=== PATIENT | female | born 1990 | race Caucasian/White ===

== ENCOUNTER 2020-12-03 07:34 | Inpatient (IN) ==
[2020-12-03] MEDS ORDERED: OXYTOCIN 30 UNITS/500 ML BAG IV PRN ×2 (08:33→18:29)
[2020-12-03 08:56] LABS: Hematocrit (blood only) 37.2 % (37-47); Hemoglobin 12.5 g/dL (12.0-16.0); Mean Corpuscular Hemoglobin 28.7 pg (25-34); Mean Corpuscular Hgb Conc 33.6 g/dL (32-36); Mean Corpuscular Volume 85.5 fL (80-100); Mean Platelet Volume 9.9 fL (7.4-10.4); Platelet Count 235 K/uL (130-400); RDW Coefficient of Variation 14.3 % (11.5-14.5); RDW Standard Deviation 44.2 fL (36.4-46.3); Red Blood Count 4.35 M/uL (4.2-5.4); White Blood Count 16.53 K/uL (4.8-10.8)
[2020-12-03] MEDS: OXYTOCIN 30 UNITS/500 ML BAG IV PRN ×2 (09:26→17:53)
[2020-12-03] MEDS: LACTATED RINGER'S 1,000 ML IV PRN ×2 (09:27→12:18)
--- NOTE | 2020-12-03 10:02 | History & Physical Report ---
Date of Service December 03, 2020 Assessment & Plan (1) Supervision of normal first : 30yo at 40.0 weeks GA. IOL 1. Fetus: Cat 1 2. Labor: Oxytocin. Will AROM when able 3. GBS negative 4. Vitals: WNL. Admission and Anticipated Discharge Date Admission Date: December 03, 2020 History of Present Illness Primary Care Provider: NO PCP 30yo G1 at 40.0 weeks GA. Presents for IOL. complicated by low fraction panoramax2 with NIPS showing low risk result. Allergies Allergy/AdvReac Type Severity Reaction Status Date / Time No Known Allergies Allergy Verified 12/02/20 08:28 Home Medications Medication Instructions Recorded Confirmed Type cetirizine 10 mg capsule 10 mg PO DAILY PRN cap 04/17/20 12/03/20 History prenat.vits,cameron,cwd-[id number]-[id number] 1 tab PO DAILY 04/17/20 12/03/20 History Breast pump #1 ea 08/16/20 12/02/20 Rx cholecalciferol (vitamin D3) PO DAILY 10/03/20 12/02/20 History ferrous sulfate PO DAILY 10/03/20 12/02/20 History Patient History Medical History Varicella vaccination Surgical History S/P tonsillectomy S/P wisdom tooth extraction Family History (Updated 04/17/20 @ 11:25 by Melissa Schaeffer) Aunt Colorectal cancer Mother Gestational diabetes Sister Gestational diabetes Denies family history of Ovarian cancer Breast cancer Social History (Updated 04/17/20 @ 11:07 by Melissa Schaeffer) Smoking Status: Never smoker Hx Alcohol Use: No Hx Substance Use: No Preferred Language: [place]ian Communication Ability: Effective Fireworks Inspector Required: No Beliefs That Will Affect Care: None marital status: marital status details: Dean James (35) [phone] Current Living Situation: Spouse Current Living Situation Comment: lives with spouse, no pets current occupational status: 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 Other Information That Helps Us Care for You: No Feels Safe at Home: Yes Safety Concerns: Feels Safe At This Time Assistive Devices: None Physical Exam 2 Constitutional: WD/WN, vitals as above Gastrointestinal (Abdomen): Inspection/Auscultation: abdomen not distended Percussion/Palpation: abdomen soft; abdomen nontender, no guarding and abdomen not rigid Psychiatric: A+Ox3, euthymic affect Genitourinary: normal external appearance OB Exam Abdomen: + vertex Manual OB Exam: + cervical dilation 6 cm, + cervical effacement 90% and + station -1 OB Exam Monitor Tracing: + external FHT monitor used, + external uterine monitor used, + category I and + normal FHT variability; no early de celerations present, no late decelerations present and no variable decelerations Results & Data ([facility]) Vital Signs (Past 12 Hours) Vital Signs Temp Pulse Resp BP 12/03/20 09:27 87 115/74 12/03/20 08:30 20 12/03/20 08:00 20 12/03/20 07:55 36.9 C 18 12/03/20 07:41 111 H 123/78 Coding Level of Care Code None Diagnoses Supervision of normal first Z34.00
[2020-12-03] MEDS ORDERED: ePHEDrine sulfate 50 MG/ML AMP ONE (11:41)
[2020-12-03] MEDS ORDERED: SODIUM CHLORIDE 0.9% INJ 10 ML VIAL ONE (11:41)
[2020-12-03] MEDS ORDERED: BUPIVACAINE 0.25% 30 ML VIAL ONE (11:41)
[2020-12-03] MEDS ORDERED: fentaNYL 2MCG/ML ROPIVACAINE 1.25MG/ML 100 ML BAG EPI ONE (11:42)
[2020-12-03] MEDS ORDERED: fentaNYL citrate 100 MCG/2 ML VIAL ONE (11:42)
[2020-12-03] MEDS ORDERED: NALOXONE HCL 1 MG in SODIUM CHLORIDE 0.9% 1000ML 1,000 ML IV PRN (12:24)
[2020-12-03] MEDS ORDERED: NALOXONE HCL 0.4 MG/1 ML VIAL/CARP IV PRN (12:24)
[2020-12-03] MEDS ORDERED: fentaNYL 2MCG/ML ROPIVACAINE 1.25MG/ML 100 ML BAG EPI PRN (12:24)
[2020-12-03] MEDS ORDERED: diphenhydrAMINE 50 MG/ML VIAL IV PRN (12:24)
[2020-12-03] MEDS ORDERED: ePHEDrine sulfate 50 MG/ML AMP IV PRN (12:24)
[2020-12-03] MEDS ORDERED: ONDANSETRON INJ 2 MG/ML 2 ML VIAL IV PRN (12:24)
--- NOTE | 2020-12-03 12:31 | Anesthesiology Consultation ---
Date of Service December 03, 2020 Assessment & Plan (1) Encounter for pre-operative examination: Chart Review Chart Review: Acceptable Risk for Labor Epidural Consults Requested none ASA ASA2 Proposed Anesthesia Anesthesia Type: Labor Epidural Risk / Benefits Reviewed With: PT / POA / Parent / Guardian, Accepts Plan and Informed Consent Obtained History Height/Weight Height: 5 ft 11 in Weight: 119.295 kg Allergies Allergy/AdvReac Type Severity Reaction Status Date / Time No Known Allergies Allergy Verified 12/02/20 08:28 Medications Home Medications Medication Instructions Recorded Confirmed Last Taken cetirizine 10 mg capsule 10 mg PO DAILY PRN cap 04/17/20 12/03/20 12/02/20 prenat.vits,cameron,[id number] 1 tab PO DAILY 04/17/20 12/03/20 12/02/20 Breast pump #1 ea 08/16/20 12/02/20 Unknown cholecalciferol (vitamin D3) PO DAILY 10/03/20 12/02/20 12/02/20 ferrous sulfate PO DAILY 10/03/20 12/02/20 12/02/20 Active Medications Generic Name Dose Route Start Last Admin Trade Name Freq PRN Reason Stop Dose Admin Oxytocin 30 units in 500 mls @ 6 mls/hr 12/03/20 08:33 12/03/20 11:15 Pitocin IV 12/05/20 08:32 0.36 units/hr .Q24H PRN 6 mls/hr Labor Induction/Augmentation Titration Protocol 0.36 UNITS/HR Lactated Ringer's 1,000 mls @ 125 mls/hr 12/03/20 08:33 12/03/20 12:18 Lr IV 12/05/20 08:32 999 mls/hr .Q8H PRN Administration L&D Protocol Protocol Past Medical History Medical History Varicella vaccination Exercise / Class Metabolic Activity II 4-5 Yardwork/Stairs/Walk up hill Past Family History Family History Aunt Colorectal cancer Mother Gestational diabetes Sister Gestational diabetes Denies family history of Ovarian cancer Breast cancer Past Surgical History Surgical History S/P tonsillectomy S/P wisdom tooth extraction Past Anesthesia History No Hx of Anesthesia Complications and No Family Hx of Anesthesia Complications History of PONV No Hx of PONV and No Hx of Motion Sickness Social History Smoking Status: Never smoker Hx Alcohol Use: No Hx Substance Use: No substance use type: does not use Physical Exam Vital Signs Last Vital Signs Temp 98.4 F 12/03/20 11:30 Pulse 91 H 12/03/20 12:26 Resp 20 12/03/20 12:00 BP 132/79 12/03/20 11:14 Pulse Ox 100 12/03/20 12:26 ENMT Mouth: no dentition abnormality Thyromental Distance: > or= 3.5 Finger Breadths Mallampati Class: II Neck normal visual inspection Respiratory normal respiratory effort Auscultation: lungs clear to auscultation bilaterally Cardiovascular Rate/Rhythm: regular rate and regular rhythm Testing Laboratory Results 12/03/20 08:40
--- NOTE | 2020-12-03 13:33 | Labor Progress Brief Note ---
Date of Service December 03, 2020 Subjective Reason For Note: Routine Evaluation Assessment & Plan (1) Supervision of normal first : 30yo at 40.0 weeks GA. IOL 1. Fetus: Cat 1 2. Labor: Oxytocin. AROM clr 3. GBS negative 4. Vitals: WNL. Admission and Anticipated Discharge Date Admission Date: December 03, 2020 Physical Exam Constitutional: WD/WN, vitals as above Genitourinary: OB Exam Abdomen: + vertex Manual OB Exam: + cervical dilation 6 cm, + cervical effacement 90%, + station -1 and + amniotic fluid clear OB Exam Monitor Tracing: + external FHT monitor used, + external uterine monitor used, + category I and + normal FHT variability; no early decelerations present, no late decelerations present and no variable decelerations Results & Data ([facility]) Vital Signs (Past 12 Hours) Vital Signs Temp Pulse Resp BP Pulse Ox 12/03/20 13:30 88 115/58 L 12/03/20 13:28 82 102/59 L 12/03/20 13:26 102 H 98 12/03/20 13:25 98 H 131/85 12/03/20 13:21 87 96 12/03/20 13:20 93 H 120/74 12/03/20 13:18 88 129/81 12/03/20 13:16 108 H 128/71 98 12/03/20 13:14 92 H 128/74 12/03/20 13:12 90 124/74 12/03/20 13:11 94 H 98 12/03/20 13:10 104 H 122/70 12/03/20 13:08 111 H 128/74 12/03/20 13:06 99 H 127/78 97 12/03/20 13:04 101 H 121/70 12/03/20 13:02 100 H 131/67 12/03/20 13:01 103 H 98 12/03/20 13:00 107 H 145/84 H 12/03/20 12:58 103 H 125/81 12/03/20 12:56 97 H 135/90 98 12/03/20 12:54 100 H 135/88 12/03/20 12:51 103 H 98 12/03/20 12:46 113 H 96 12/03/20 12:41 103 H 97 12/03/20 12:36 100 H 98 12/03/20 12:31 104 H 100 12/03/20 12:30 94 H 135/90 12/03/20 12:26 91 H 100 12/03/20 12:00 20 12/03/20 11:30 36.9 C 20 12/03/20 11:14 85 132/79 12/03/20 11:00 20 12/03/20 10:31 88 118/73 12/03/20 10:30 18 12/03/20 10:00 20 12/03/20 09:30 20 12/03/20 09:27 87 115/74 12/03/20 08:30 20 12/03/20 08:00 20 12/03/20 07:55 36.9 C 18 12/03/20 07:41 111 H 123/78 Coding Level of Care Code None Diagnoses Supervision of normal first Z34.00
[2020-12-03] MEDS ORDERED: METHYLERGONOVINE MALEATE 0.2 MG/ML AMP ONE (17:33)
[2020-12-03] MEDS ORDERED: miSOPROStoL 100 MCG TAB ONE (17:34)
[2020-12-03] MEDS ORDERED: LIDOCAINE HCL 1% 20 ML VIAL ONE (17:41)
[2020-12-03] MEDS ORDERED: SUPERCREAM 0.870% 15 GM JAR EXT PRN (18:29)
[2020-12-03] MEDS ORDERED: BENZOCAINE 20% AER SPR 82.5 GM CAN EXT PRN (18:29)
[2020-12-03] MEDS ORDERED: HYDROCORTISONE ACETATE 25 MG SUPP PR PRN (18:29)
[2020-12-03] MEDS ORDERED: bisacodyL 10 MG SUPP PR PRN (18:29)
[2020-12-03] MEDS ORDERED: DIPHTHERIA/TETANUS/PERTUSSIS 0.5 ML SYR/VIAL IM ONE (18:29)
--- NOTE | 2020-12-03 20:33 | Anesthesia Procedure Note ---
Date of Service December 03, 2020 Anesthesia Post Epidural Note Vital Signs Vital Signs: Temp Pulse Resp BP Pulse Ox 97.7 F 98 H 18 114/58 L 99 12/03/20 18:13 12/03/20 19:58 12/03/20 19:58 12/03/20 19:58 12/03/20 18:16 Pain Intensity Bilateral Lower Abdomen: Pain Intensity: 3 Notes Mental Status: alert / awake / arousable and participated in evaluation Nausea / Vomiting: adequately controlled Pain: adequately controlled Airway Patency, RR, SpO2: stable & adequate BP & HR: stable & adequate Hydration State: stable & adequate Neuraxial Anesthesia: was administered and sensory block is resolving Anesthetic Complications: no major complications apparent and Pt Satisfied with anesthetic care Epidural: Removed without complications and With tip intact
[2020-12-03] MEDS: DOCUSATE SODIUM 100 MG CAP PO SCH (20:56)
[2020-12-03] MEDS: ACETAMINOPHEN 325 MG TAB PO PRN (20:56)
--- NOTE | 2020-12-03 22:11 | Delivery Summary ---
DATE OF OPERATION: 12/03/2020 PROCEDURE: Normal spontaneous vaginal delivery with second-degree perineal laceration repair and bilateral sulcal laceration repairs. SURGEON: Linwood Rogers MD. PREOPERATIVE DIAGNOSES: 1. Single intrauterine at term. 2. Induction of labor. POSTOPERATIVE DIAGNOSES: Status post procedure: 1. Single intrauterine at term. 2. Induction of labor. ESTIMATED BLOOD LOSS: 500 mL. DRAINS: Straight cath at the completion of the case of 700 mL. URINE OUTPUT: Per straight catheterization. COMPLICATIONS: None. FINDINGS: Viable male with weight 8 pounds 11 ounces and Apgars of 8 and 9 at 1 and 5 minutes respectively. DESCRIPTION OF PROCEDURE: The patient progressed to 10 cm dilated, 100% effaced, +2 station, pushed over intact perineum with epidural anesthesia and delivered a viable male infant, weight and Apgars as noted above. Head of the delivered in MAHENDRA position, rest in left transverse. No nuchal cord was noted. Body and shoulders quickly followed. was delivered to maternal abdomen and was noted to be vigorous soon after delivery. A 1-minute delayed cord clamping was initiated for which the cord was double clamped and cut and remained on maternal abdomen. Cord blood was then obtained. Attention was then turned to deliver of the placenta, delivered intact, 3-vessel cord, gentle cord traction. On inspection of perineum, vagina, and cervix, there was noted to be second-degree perineal laceration and bilateral sulcal lacerations. The sulcal lacerations were repaired with 3-0 Vicryl in continuous running locked stitch. The perineal laceration was repaired with 3-0 Vicryl in a traditional crown stitch. Needle, sponge and instrument counts were correct at the completion of the case with mother and stable in the immediate post-delivery period. I attest to the content of the Intraoperative Record and any orders documented therein. Any exception s are noted below.
[2020-12-03] MEDS: IBUPROFEN 600 MG TAB PO PRN (22:30)
[2020-12-04] MEDS: IBUPROFEN 600 MG TAB PO PRN ×4 (02:09→16:39)
[2020-12-04] MEDS: ACETAMINOPHEN 325 MG TAB PO PRN ×3 (04:33→19:55)
[2020-12-04 06:28] LABS: Hematocrit (blood only) 30.2 % (37-47); Hemoglobin 10.3 g/dL (12.0-16.0); Mean Corpuscular Hemoglobin 28.9 pg (25-34); Mean Corpuscular Hgb Conc 34.1 g/dL (32-36); Mean Corpuscular Volume 84.8 fL (80-100); Mean Platelet Volume 9.8 fL (7.4-10.4); Platelet Count 211 K/uL (130-400); RDW Coefficient of Variation 14.3 % (11.5-14.5); RDW Standard Deviation 44.2 fL (36.4-46.3); Red Blood Count 3.56 M/uL (4.2-5.4); White Blood Count 18.69 K/uL (4.8-10.8)
--- NOTE | 2020-12-04 07:20 | Obstetrical Progress Note ---
Date of Service <Emilio Leslie MD - Last Filed: 12/04/20 07:20> December 04, 2020 Assessment & Plan <Emilio Leslie MD - Last Filed: 12/04/20 07:20> (1) abnormality affecting management of mother, antepartum: A/P: Jeri Ramirez is a 30yo female on PPD#1 following at 40wga. * Patient feels well today; eating well, voiding well, ambulating well * Pain well-controlled with ibuprofen 600mg q6h prn and tylenol 600mg q6h prn * PNL: Rh pos, RI, GBS neg, COVID neg * Routine care: OOB, ambulation, diet progression as tolerated * After discharge, will have six-week follow-up with Dr. Rogers Subjective <Emilio Leslie MD - Last Filed: 12/04/20 07:20> Jeri Ramirez is a 30yo female on PPD#1 following at 40wga. This morning, patient feels well overall. Reports mild, crampy abdominal pain well-managed on analgesics.Tolerating PO intake without nausea or vomiting. Patient has been able to ambulate without lightheadedness or dizziness. Voiding well without difficulty. Lochia is gradually improving over time. Patient is . Review of Systems Denies fever, chills, CP, SOB, cough, breast pain, dysuria, leg pain, leg swelling, headache, and changes in vision. Physical Exam <Emilio Leslie MD - Last Filed: 12/04/20 07:20> General: alert, oriented, no acute distress Cardiac: regular rate and rhythm, no murmur appreciated Respiratory: lungs clear to auscultation bilaterally a/p, no wheezes/rales/rhonchi, no increased work of breathing, symmetrical chest rise, no respiratory distress Abd: normal gravid abdomen, soft, minimally tender, BS present : uterine fundus firm, palpable 2-3 cm below umbilicus LE: no lower extremity edema bilaterally; no deep calf pain, Alvarez's negative bilaterally Results & Data ([facility]) <Emilio Leslie MD - Last Filed: 12/04/20 07:20> Vital Signs (Past 12 Hours) Vital Signs Temp Pulse Pulse Resp BP BP 12/04/20 04:40 36.5 C 80 18 117/75 12/04/20 00:30 36.6 C 99 H 18 106/62 12/03/20 22:00 106 H 111/72 12/03/20 20:45 37.3 C 125 H 18 109/72 12/03/20 19:58 98 H 18 114/58 L 12/03/20 19:44 106 H 129/78 12/03/20 19:28 95 H 18 119/78 <Linwood Rogers MD - Last Filed: 12/05/20 08:26> Co-Signing Physician Notes Patient seen and evaluated and agree with the above findings and plan. Routine OB care. Resident Activity Tracking <Emilio Leslie MD - Last Filed: 12/04/20 07:20> Resident Involvement: Resident Care Provided Care Provided: OB Delivery
[2020-12-04] MEDS: FERROUS SULFATE 325 MG TAB PO SCH (08:41)
[2020-12-04] MEDS: DOCUSATE SODIUM 100 MG CAP PO SCH ×2 (08:41→19:55)
[2020-12-04] MEDS: PRENATAL VITAMIN 1 TAB PO SCH (08:41)
[2020-12-04] MEDS ORDERED: bisacodyL 5 MG TABEC PO SCH (20:00)
[2020-12-05] MEDS: IBUPROFEN 600 MG TAB PO PRN ×3 (00:11→09:25)
[2020-12-05 06:23] LABS: Hematocrit (blood only) 29.2 % (37-47); Hemoglobin 9.8 g/dL (12.0-16.0)
--- NOTE | 2020-12-05 06:51 | Obstetrical Progress Note ---
Date of Service <Emilio Leslie MD - Last Filed: 12/05/20 06:50> December 05, 2020 Assessment & Plan <Emilio Leslie MD - Last Filed: 12/05/20 06:50> (1) abnormality affecting management of mother, antepartum: A/P: Jeri Ramirez is a 30yo female on PPD#2 following at 40wga. * Patient feels well today; eating well, voiding well, ambulating well * Pain well-controlled with ibuprofen 600mg q6h prn and tylenol 600mg q6h prn * PNL: Rh pos, RI, GBS neg, COVID neg * Routine care: OOB, ambulation, diet progression as tolerated * After discharge, will have six-week follow-up with Dr. Rogers Subjective <Emilio Leslie MD - Last Filed: 12/05/20 06:50> Jeri Ramirez is a 30yo female on PPD#2 following at 40wga. This morning, patient feels well overall. Reports mild, crampy abdominal pain well-managed on analgesics.Tolerating PO intake without nausea or vomiting. Patient has been able to ambulate without lightheadedness or dizziness. Voiding well without difficulty. Lochia is gradually improving over time. Patient is . Denies fever, chills, CP, SOB, cough, breast pain, dysuria, leg pain, leg swelling, headache, and changes in vision. Physical Exam <Emilio Leslie MD - Last Filed: 12/05/20 06:50> General: alert, oriented, no acute distress Cardiac: regular rate and rhythm, no murmur appreciated Respiratory: lungs clear to auscultation bilaterally a/p, no wheezes/rales/rhonchi, no increased work of breathing, symmetrical chest rise, no respiratory distress Abd: normal gravid abdomen, soft, minimally tender, BS present : uterine fundus firm, palpable 2-3 cm below umbilicus LE: no lower extremity edema bilaterally; no deep calf pain, Alvarez's negative bilaterally Results & Data ([facility]) <Emilio Leslie MD - Last Filed: 12/05/20 06:50> Vital Signs (Past 12 Hours) Vital Signs Temp Pulse Pulse Resp BP Pulse Ox 12/05/20 00:06 36.6 C 97 H 20 118/72 98 12/04/20 20:40 36.7 C 84 18 116/70 98 <Sophy Jo DO - Last Filed: 12/05/20 08:13> Co-Signing Physician Notes Resident Physician Supervision Note: I was present with Dr. Leslie during the history and exam. I discussed the case with the resident and agree with the findings and plan as documented in the note. Any exceptions or clarifications are listed here: PPD#2 doing well. DC home today. Instructions reviewed. Followup PP 6w. Documented By: Sophy Jo DO Resident Activity Tracking <Emilio Leslie MD - Last Filed: 12/05/20 06:50> Resident Involvement: Resident Care Provided Care Provided: OB Delivery
[2020-12-05] MEDS: PRENATAL VITAMIN 1 TAB PO SCH (09:24)
[2020-12-05] MEDS: FERROUS SULFATE 325 MG TAB PO SCH (09:24)
[2020-12-05] MEDS: DOCUSATE SODIUM 100 MG CAP PO SCH (09:25)
== END 2020-12-05 12:45 | disposition home or self-care (01) | DRG 807 ==
LOC: 4S1 07:34 → 4S2 20:22
DX: O36.8931 Maternal care for other specified fetal problems, third trimester, fetus 1; Z3A.40 40 weeks gestation of pregnancy; O70.1 Second degree perineal laceration during delivery; Z37.0 Single live birth

== ENCOUNTER 2023-05-12 08:08 | Inpatient (IN) ==
[2023-05-12] MEDS ORDERED: OXYTOCIN 30 UNITS/500 ML BAG IV PRN ×3 (08:10→15:54)
[2023-05-12] MEDS ORDERED: LIDOCAINE 1% LOCAL 20 ML VIAL INFIL PRN (08:10)
[2023-05-12 08:42] LABS: Hematocrit (blood only) 37.1 % (37.0-47.0); Hemoglobin 12.8 g/dl (12.0-16.0); Mean Corpuscular Hemoglobin 28.8 pg (25.0-34.0); Mean Corpuscular Hgb Conc 34.5 g/dL (32.0-36.0); Mean Corpuscular Volume 83.4 fL (80.0-100.0); Mean Platelet Volume 9.6 fL (9.4-12.4); Platelet Count 256 K/uL (130-400); RDW Standard Deviation 42.5 fL (36.4-46.3); Red Blood Count 4.45 M/uL (4.20-5.40); White Blood Count 15.82 K/ul (4.8-10.8)
[2023-05-12] MEDS: LACTATED RINGER'S 1,000 ML IV PRN ×2 (09:04→10:56)
[2023-05-12] MEDS ORDERED: fentaNYL citrate PF 100 MCG/2 ML VIAL ONE (09:13)
[2023-05-12] MEDS ORDERED: LIDOCAINE 2%/EPINEPHRINE 1:200,000 20 ML PF ONE (09:13)
[2023-05-12] MEDS ORDERED: BUPIVACAINE 0.25% PF 30 ML VIAL ONE (09:13)
[2023-05-12] MEDS ORDERED: fentaNYL 2MCG/ML ROPIVACAINE 1.25MG/ML 100 ML BAG EPI ONE (09:13)
[2023-05-12] MEDS ORDERED: SODIUM CHLORIDE 0.9% PF INJ 10 ML VIAL ONE (09:13)
[2023-05-12] MEDS ORDERED: ePHEDrine sulfate 50 MG/ML AMP ONE (09:13)
[2023-05-12] MEDS ORDERED: BUPIVACAINE 0.25% PF 30 ML VIAL EPI STA (09:56)
[2023-05-12] MEDS ORDERED: BUPIVACAINE 0.25% PF 30 ML VIAL EPI PRN (09:56)
[2023-05-12] MEDS ORDERED: NALOXONE HCL 0.4 MG/1 ML VIAL/CARP IV PRN (09:56)
[2023-05-12] MEDS ORDERED: fentaNYL 2MCG/ML ROPIVACAINE 1.25MG/ML 100 ML BAG EPI PRN (09:56)
[2023-05-12] MEDS ORDERED: NALOXONE HCL 1 MG in SODIUM CHLORIDE 0.9% 1,000 ML IV PRN (09:56)
[2023-05-12] MEDS ORDERED: LIDOCAINE 2% MPF LOCAL 5 ML VIAL EPI PRN (09:56)
[2023-05-12] MEDS ORDERED: diphenhydrAMINE 50 MG/ML VIAL IV PRN (09:56)
[2023-05-12] MEDS ORDERED: NALBUPHINE HCL INJ 10 MG/ML AMP IV PRN (09:56)
[2023-05-12] MEDS ORDERED: fentaNYL citrate PF 100 MCG/2 ML VIAL EPI PRN (09:56)
[2023-05-12] MEDS ORDERED: SODIUM CHLORIDE 0.9% PF INJ 10 ML VIAL EPI PRN (09:56)
[2023-05-12] MEDS ORDERED: LIDOCAINE 2%/EPINEPHRINE 1:200,000 20 ML PF EPI STA (09:56)
[2023-05-12] MEDS ORDERED: ePHEDrine sulfate 50 MG/ML AMP IV PRN (09:56)
[2023-05-12] MEDS ORDERED: ROPIVACAINE 0.5% PF 5 MG/ML 20 ML VIAL EPI PRN (09:56)
[2023-05-12] MEDS ORDERED: fentaNYL citrate PF 100 MCG/2 ML VIAL EPI STA (09:56)
[2023-05-12] MEDS ORDERED: SODIUM CHLORIDE 0.9% PF INJ 10 ML VIAL EPI STA (09:56)
--- NOTE | 2023-05-12 09:56 | Anesthesiology Consultation ---
Date of Service May 12, 2023 Assessment & Plan Chart Review Chart Review: Patient NOT seen in Pre Admission Testing and Acceptable Risk for Labor Epidural Consults Requested none History Height/Weight Height: 5 ft 10 in Weight: 114.305 kg Allergies Allergy/AdvReac Type Severity Reaction Status Date / Time No Known Allergies Allergy Verified 05/12/23 08:25 Medications Home Medications Medication Instructions Recorded Confirmed Last Taken prenat.vits,cameron,[id number] 1 tab PO DAILY 04/17/20 05/12/23 05/11/23 09:00 acetone (urine) test (Ketone Urine #50 ea 03/10/23 05/11/23 Unknown Test strips) blood sugar diagnostic (OneTouch #150 ea 03/10/23 05/11/23 Unknown Verio test strips) blood-glucose meter (OneTouch #1 ea 03/10/23 05/11/23 Unknown Verio Reflect Meter) lancets 33 gauge #150 ea 03/10/23 05/11/23 Unknown breast pump #1 ea 03/18/23 05/11/23 Unknown Active Medications Generic Name Dose Route Start Last Admin Trade Name Freq PRN Reason Stop Dose Admin Lactated Ringer's 1,000 mls @ 125 mls/hr 05/12/23 08:10 05/12/23 09:31 Lr IV 05/14/23 08:09 125 mls/hr .Q8H PRN Infusion L&D Protocol Protocol Past Medical History Medical History Encounter for pre-operative examination abnormality affecting management of mother, antepartum Supervision of normal first Varicella vaccination Past Family History Family History Aunt Colorectal cancer Mother Gestational diabetes Sister Gestational diabetes Denies family history of Ovarian cancer Breast cancer Past Surgical History Surgical History S/P tonsillectomy S/P wisdom tooth extraction Social History Smoking Status: Never smoker Do You Dip or Chew Tobacco: No Hx Alcohol Use: No Hx Substance Use: No substance use type: does not use Physical Exam Vital Signs Last Vital Signs Temp 99.1 F 05/12/23 08:21 Pulse 110 H 05/12/23 09:04 Resp 20 05/12/23 08:21 BP 121/74 05/12/23 09:04 Testing Laboratory Results 05/12/23 08:26 Blood Type Cancelled 05/12/23 08:26 Antibody Screen Cancelled 05/12/23 08:26
--- NOTE | 2023-05-12 14:41 | History & Physical Report ---
Date of Service May 12, 2023 Assessment & Plan (1) Supervision of normal intrauterine in multigravida: Plan: Multiparous female at 39 weeks for IOL because of advanced dilation. Will AROM and then epidural analgesia pitocin augmentation if necessary anticipate vaginal Admission and Anticipated Discharge Date Admission Date: May 12, 2023 History of Present Illness Primary Care Provider: NO PCP Patient is a 32 yo female EDC 05/19/23 who presents at 39 weeks for elective induction because of advanced dilation and GDM. GBS-negative. GDM is diet controlled. testing has been reassuring. Allergies Allergy/AdvReac Type Severity Reaction Status Date / Time No Known Allergies Allergy Verified 05/12/23 08:25 Home Medications Medication Instructions Recorded Confirmed Type prenat.vits,cameron,[id number] 1 tab PO DAILY 04/17/20 05/12/23 History acetone (urine) test (Ketone Urine #50 ea 03/10/23 05/11/23 Rx Test strips) blood sugar diagnostic (OneTouch #150 ea 03/10/23 05/11/23 Rx Verio test strips) blood-glucose meter (OneTouch #1 ea 03/10/23 05/11/23 Rx Verio Reflect Meter) lancets 33 gauge #150 ea 03/10/23 05/11/23 Rx breast pump #1 ea 03/18/23 05/11/23 Rx Patient History Medical History Encounter for pre-operative examination abnormality affecting management of mother, antepartum Supervision of normal first Varicella vaccination Surgical History S/P tonsillectomy S/P wisdom tooth extraction Family History Aunt Colorectal cancer Mother Gestational diabetes Sister Gestational diabetes Denies family history of Ovarian cancer Breast cancer Social History (Updated 09/28/22 @ 07:40 by Juliette Smith) Smoking Status: Never smoker Do You Dip or Chew Tobacco: No; Hx Alcohol Use: No Hx Substance Use: No Preferred Language: [place]er Communication Ability: Effective Hand Engraver Required: No Beliefs That Will Affect Care: None marital status: marital status details: Dean Ramirez (37) [phone] Current Living Situation: Spouse Current Living Situation Comment: lives with spouse, son, no pets 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 Other Information That Helps Us Care for You: No Feels Safe at Home: Yes Safety Concerns: Feels Safe At This Time Assistive Devices: None Review of Systems All systems reviewed & are unremarkable except as noted in HPI & below Physical Exam Constitutional: WD/WN, vitals as above Psychiatric: A+Ox3, euthymic affect Genitourinary: OB Exam Abdomen: + vertex, + estimated weight (8-9 pounds) and + irregular contractions Manual OB Exam: + cervical dilation (6- 7), + cervical effacement (80) and + station -2 OB Exam Monitor Tracing: + external FHT monitor used, + external uterine monitor used, + category I and + normal FHT variability Results & Data Vital Signs (Past 12 Hours) Vital Signs Temp Pulse Resp BP Pulse Ox 05/12/23 14:34 99 05/12/23 14:34 86 05/12/23 14:30 84 05/12/23 14:30 106/57 L 05/12/23 14:29 99 05/12/23 14:29 85 05/12/23 14:24 98 05/12/23 14:24 85 05/12/23 14:19 97 05/12/23 14:19 94 H 05/12/23 14:00 18 05/12/23 14:00 18 05/12/23 14:15 86 05/12/23 14:15 106/57 L 05/12/23 14:14 97 05/12/23 14:14 101 H 05/12/23 14:09 96 05/12/23 14:09 86 05/12/23 14:04 96 05/12/23 14:04 87 05/12/23 13:59 96 05/12/23 13:59 97 H 05/12/23 13:59 92 H 05/12/23 13:59 101/59 L 05/12/23 13:54 96 05/12/23 13:54 101 H 05/12/23 13:49 95 05/12/23 13:49 103 H 05/12/23 13:45 82 05/12/23 13:45 100/57 L 05/12/23 13:44 96 05/12/23 13:44 83 05/12/23 13:39 97 05/12/23 13:39 92 H 05/12/23 13:30 18 05/12/23 13:30 18 05/12/23 13:34 97 05/12/23 13:34 99 H 05/12/23 13:29 95 05/12/23 13:29 105 H 05/12/23 13:29 99 H 05/12/23 13:29 101/56 L 05/12/23 13:24 97 05/12/23 13:24 96 H 05/12/23 13:19 98 05/12/23 13:19 89 05/12/23 13:14 96 05/12/23 13:14 88 05/12/23 13:15 92 H 05/12/23 13:15 105/65 05/12/23 13:09 97 05/12/23 13:09 98 H 05/12/23 13:04 97 05/12/23 13:04 95 H 05/12/23 12:59 97 05/12/23 12:59 88 05/12/23 13:00 18 05/12/23 13:00 18 05/12/23 12:59 93 H 05/12/23 12:59 106/64 05/12/23 12:54 97 05/12/23 12:54 87 05/12/23 12:30 20 05/12/23 12:30 98.1 F 20 05/12/23 12:49 98 05/12/23 12:49 92 H 05/12/23 12:44 98 05/12/23 12:44 89 05/12/23 12:45 96 H 05/12/23 12:45 118/69 05/12/23 12:35 18 05/12/23 12:35 98.1 F 18 05/12/23 12:39 97 05/12/23 12:39 100 H 05/12/23 12:34 96 05/12/23 12:34 101 H 05/12/23 12:29 98 05/12/23 12:29 97 H 05/12/23 12:29 100 H 05/12/23 12:29 122/74 05/12/23 12:24 96 05/12/23 12:24 100 H 05/12/23 12:19 94 05/12/23 12:19 96 H 05/12/23 12:14 95 05/12/23 12:14 106 H 05/12/23 12:14 120/78 05/12/23 12:09 96 05/12/23 12:09 92 H 05/12/23 12:00 20 05/12/23 12:00 20 05/12/23 12:04 96 05/12/23 12:04 106 H 05/12/23 12:00 164 H 05/12/23 12:00 121/64 05/12/23 11:59 95 05/12/23 11:59 112 H 05/12/23 11:54 97 05/12/23 11:54 98 H 05/12/23 11:49 96 05/12/23 11:49 101 H 05/12/23 11:45 100 H 05/12/23 11:45 111/70 05/12/23 11:44 96 05/12/23 11:44 100 H 05/12/23 11:39 97 05/12/23 11:39 111 H 05/12/23 11:34 96 05/12/23 11:34 102 H 05/12/23 11:30 20 05/12/23 11:30 20 05/12/23 11:29 96 05/12/23 11:29 96 H 05/12/23 11:29 121/73 05/12/23 11:15 18 05/12/23 11:15 18 05/12/23 11:20 20 05/12/23 11:20 20 05/12/23 11:24 96 05/12/23 11:24 94 H 05/12/23 11:24 88 05/12/23 11:24 120/73 05/12/23 11:19 97 05/12/23 11:19 106 H 05/12/23 11:19 109 H 05/12/23 11:19 130/80 05/12/23 11:14 97 05/12/23 11:14 109 H 05/12/23 11:13 98 H 05/12/23 11:13 119/70 05/12/23 11:10 20 05/12/23 11:10 20 05/12/23 11:12 93 H 05/12/23 11:12 129/71 05/12/23 11:09 96 05/12/23 11:09 104 H 05/12/23 11:10 99 H 05/12/23 11:10 131/77 05/12/23 11:08 96 H 05/12/23 11:08 112/63 05/12/23 11:06 113 H 05/12/23 11:06 114/83 05/12/23 11:04 95 05/12/23 11:04 108 H 05/12/23 11:03 108 H 05/12/23 11:03 112/58 L 05/12/23 11:01 104 H 05/12/23 11:01 118/63 05/12/23 10:59 95 05/12/23 10:59 107 H 05/12/23 10:59 125/71 05/12/23 10:57 20 05/12/23 10:57 20 05/12/23 10:57 89 05/12/23 10:57 118/71 05/12/23 10:54 95 05/12/23 10:54 102 H 05/12/23 10:49 94 05/12/23 10:49 106 H 05/12/23 10:44 94 05/12/23 10:45 94 05/12/23 10:44 100 H 05/12/23 10:45 114 H 05/12/23 10:29 91 H 05/12/23 10:29 134/74 05/12/23 10:29 20 05/12/23 10:29 98.2 F 20 05/12/23 09:04 110 H 05/12/23 09:04 121/74 05/12/23 08:21 99.1 F 112 H 20 139/85 Coding Level of Care Code None Diagnoses Supervision of normal intrauterine in multigravida Z34.80
[2023-05-12] MEDS ORDERED: bisacodyL 10 MG SUPP PR PRN (15:54)
[2023-05-12] MEDS ORDERED: BENZOCAINE 20% SPRY 85 APPLN/85 GM CAN EXT PRN (15:54)
[2023-05-12] MEDS ORDERED: DIPHTHERIA/TETANUS/PERTUSSIS Vaccine (Tdap, Age 7+yrs) 0.5mL SYR/VL IM ONE (15:54)
[2023-05-12] MEDS ORDERED: oxyCODONE/ACETAMINOPHEN 5mg/325mg TAB PO PRN (15:54)
[2023-05-12] MEDS ORDERED: HYDROCORTISONE ACETATE 25 MG SUPP PR PRN (15:54)
[2023-05-12] MEDS ORDERED: COUGH DROP (SUGAR FREE) LOZ 24 LOZ/1 BOX BUCCAL PRN (16:05)
--- NOTE | 2023-05-12 16:12 | Delivery Summary ---
Vaginal Delivery Summary Date of Service May 12, 2023 Vaginal Delivery Summary and 2nd Degree LAC Patient is a 32-year-old 2 para 1-0-0-1 female who presents at 39 weeks for elective induction of labor because of advanced cervical dilation. She had rupture membranes for clear fluid to begin her induction. She received epidural analgesia that require Pitocin augmentation to maintain a regular contraction pattern. She progressed to full dilation and pushed effectively over intact perineum for delivery of a viable female . After the head was delivered there was a loose nuchal cord x2 which was reduced prior to delivery and the rest of the infant. After the nuchal cord was reduced, the shoulders were delivered without maternal effort. Rest the delivered easily was placed on mother's abdomen for further attention and drying. She was vigorous crying and moving all 4 limbs. Was clamped and cut after 1 minute. Cord blood was obtained placenta was expressed intact with a three-vessel cord. bleeding was controlled with dilute Pitocin and fundal massage. Second-degree perineal laceration was repaired with 3-0 chromic in the usual fashion. Estimated blood loss was 300 cc. Mother and infant were doing well after delivery. [facility] [place] Vaginal Delivery Charge Delivery Type Details: and 2nd Degree LAC
--- NOTE | 2023-05-12 17:34 | Anesthesia Procedure Note ---
Date of Service May 12, 2023 Anesthesia Post Epidural Note Vital Signs Vital Signs: Temp Pulse Resp BP Pulse Ox 98.4 F 105 H 20 108/71 98 05/12/23 14:30 05/12/23 17:13 05/12/23 17:13 05/12/23 17:13 05/12/23 15:39 Notes Mental Status: alert / awake / arousable and participated in evaluation Nausea / Vomiting: adequately controlled Pain: adequately controlled Airway Patency, RR, SpO2: stable & adequate BP & HR: stable & adequate Hydration State: stable & adequate Neuraxial Anesthesia: was administered and sensory block is resolving Anesthetic Complications: no major complications apparent and Pt Satisfied with anesthetic care Epidural: Removed without complications and With tip intact
[2023-05-12] MEDS: IBUPROFEN 600 MG TAB PO PRN ×2 (18:35→22:19)
[2023-05-12] MEDS: DOCUSATE SODIUM 100 MG CAP PO SCH (20:11)
[2023-05-12] MEDS: ACETAMINOPHEN 325 MG TAB PO PRN (20:11)
[2023-05-13] MEDS: ACETAMINOPHEN 325 MG TAB PO PRN ×3 (02:00→14:38)
[2023-05-13] MEDS: IBUPROFEN 600 MG TAB PO PRN ×4 (02:01→14:38)
[2023-05-13 06:17] LABS: Hematocrit (blood only) 31.8 % (37.0-47.0); Hemoglobin 10.9 g/dl (12.0-16.0); Mean Corpuscular Hemoglobin 28.7 pg (25.0-34.0); Mean Corpuscular Hgb Conc 34.3 g/dL (32.0-36.0); Mean Corpuscular Volume 83.7 fL (80.0-100.0); Mean Platelet Volume 9.8 fL (9.4-12.4); Platelet Count 224 K/uL (130-400); RDW Coefficient of Variation 14.4 % (11.5-14.5); RDW Standard Deviation 43.6 fL (36.4-46.3); White Blood Count 14.36 K/ul (4.8-10.8)
--- NOTE | 2023-05-13 06:31 | Obstetrical Progress Note ---
Date of Service May 13, 2023 Assessment & Plan (1) Encounter for care and examination after delivery: Plan: s/p day 1 Viral signs reviewed and WNL Blood type O+, Rubella immune, GBS negative Pt doing well clinically Encourage ambulation Monitor and control pain with Motrin prn Regular diet, Monitor Lochia Encourage breast feeding D/C, instructions reviewed with patient Admission and Anticipated Discharge Date Admission Date: May 12, 2023 Supervising Physician Co-Signing Physician Notes Resident Physician Supervision Note: I interviewed and examined the patient. Discussed with Dr. Chaitanya Cash and agree with findings and plan as documented in the note. Any exceptions or clarifications are listed here: [None] Documented By: Shania Mosley MD, FACOG Subjective 32 yo post- day 1 s/p Ambulation: ambulating normally Voiding: no voiding problems Passing Gas:: Yes Diet Tolerance:: regular diet Lochia:: Small Feeding Type:: breast feeding Current Pain Level: Minimal Resting comfortably this AM in NAD. Denies MARISCAL, CP, SOB, N/V/D, LE pain/swelling. Review of Systems Review of Systems: All systems reviewed & are unremarkable except as noted in HPI & below Physical Exam Physical Exam: General: patient resting comfortably, NAD, non-toxic in appearance, AA&O x 4, answers questions appropriately. Skin: warm, dry, intact HEENT: NC/AT, anicteric sclera, conjunctiva without injection, moist mucus membranes. Heart: +S1/S2, regular, no m/r/g Lungs: equal air entry bilaterally, no rales/rhonchi/wheezes Abd: +BS, soft, NT/ND, uterine fundus firm at umbilicus Ext: warm, no clubbing/cyanosis or edema, Alvarez's neg. Neuro: nonfocal, patient AA&O x 4, speech intact, no facial droop, moving all extremities on command. Results & Data Vital Signs (Past 12 Hours) Vital Signs Temp Pulse Resp BP Pulse Ox O2 Del Method 05/13/23 04:25 36.5 C 80 18 116/75 96 Room Air 05/12/23 23:55 Room Air 05/12/23 23:55 36.5 C 89 18 116/75 96 Room Air 05/12/23 20:00 36.7 C 109 H 18 101/67 96 Room Air 05/12/23 18:49 37 C 18 108/71 96 Room Air Resident Activity Tracking Resident Involvement: Resident Care Provided Care Provided: OB Delivery
[2023-05-13] MEDS: DOCUSATE SODIUM 100 MG CAP PO SCH (07:41)
[2023-05-13] MEDS ORDERED: PRENATAL VITAMIN 1 TAB PO SCH (08:00)
[2023-05-13] MEDS: guaiFENesin/DEXTROM SYRUP 200MG/20MG 10ML UDC PO PRN ×2 (09:16→14:38)
[2023-05-13] MEDS ORDERED: bisacodyL 5 MG TABEC PO SCH (20:00)
== END 2023-05-13 16:13 | disposition home or self-care (01) | DRG 805 ==
LOC: 4S1 08:08 → 4E2 18:15